=== PATIENT | female | born 1945 | race Caucasian/White ===

== ENCOUNTER 2018-05-04 14:39 | Inpatient (IN) ==
[2018-05-04] MEDS ORDERED: *HR* OxyCODONE Immed Rel 5 MG TABLET PO PRN (14:40)
[2018-05-04] MEDS ORDERED: Loratadine 10 MG TABLET PO PRN (14:44)
--- NOTE | 2018-05-04 15:37 | Internal Med History&Physical ---
Date of Encounter: 05/04/18 Time of Encounter: 15:35 Assessment and Plan (1) Status post total knee replacement, right Current visit: No Status: Acute Secondary to osteoarthritis; patient has metal and polyethylene replacement No reported anemia, patient had EBL 200 mL Operation was 04/30/[address] Valentín Perez PT OT Pain controlled with oxycodone 5 mg every 6 hours when necessary We will also start Tylenol when necessary VTE prophy prescribed ASA 325mg BID per ortho for 10 days last blood work reviewed from the discharge papers 05/02/18 Hgb 12.4 Na 135 K 4 Cl 103 CO 26 BUN 15 Cr 0.71 Rehab orders: "Total Knee replacement Precautions x 6 weeks Apply cold therapy wrap 3-6x/day for 20 minutes at a time. Encourage ambulation throughout the day and incentive spirometer 10x/hour. Elevate affected extremity above heart as tolerated. Brace: Wear knee immobilizer at night x 2 weeks." (2) Arthritis of knee, right Current visit: No Status: Chronic see above (3) HLD (hyperlipidemia) Current visit: No Status: Chronic Patient on simvastatin 20 mg; we will continue Qualifiers: Hyperlipidemia type: unspecified Qualified Code(s): E78.5 - Hyperlipidemia , unspecified (4) Obesity Current visit: No Status: Chronic We will continue to monitor weights Possible nutrition consultation Qualifiers: Obesity type: due to excess calories Obesity classification: adult class 1 (BMI 30 - 34.9) Serious obesity comorbidity presence: without serious comorbidity Body mass index: BMI 33.0-33.9 Qualified Code(s): E66.09 - Other obesity due to excess calories; Z68.33 - Body mass index (BMI) 33.0-33.9, adult Internal Medicine - H&P: HPI Chief complaint: s/p Right knee arthroplasty Admitted From: Hospital to Hospital Transfer Plans for Post Hospital Care: Home History of present illness: Ms. Busch is a 72 year old female w/ past medical history significant for hyperlipidemia and osteoarthritis is status post right robotic-assisted total knee replacement performed in 04/30/2018. Her operative note patient suffered from grade 4 arthritic changes in all 3 compartments and the patient ended with metal and polyethylene replacements after 4 years of kne injections. Denied any use of assistive devices prior to her elective surgery. No reported complications with EBL 200cc. Currently the pt denied any CP/SOB/GI or issues. reporting pain is about 8/10 localized to the knee that affected its ROM. Past Med Surg Social Fam HX - Past Medical History Psychiatric history: no psych history - Past Surgical History Additional surgical history: Right shoulder replacement. Tonsillectomy - Social History Smoking Status: Former smoker Smokeless Tobacco Status: No Alcohol use: occasionally Drug use: none - Family History Father Age at : 46 (cardiovascular related, [place]) Mother Age at : 80 (Jandice related ) Sister Age at : 44 (cardiovascular and DM related) Internal Medicine - H&P: Meds Aspirin Enteric Coated [Aspirin EC] 325 mg PO BID #20 tablet. 04/29/18 [Rx] OxyCODONE Immed Rel [Roxicodone 5 MG] 5 mg PO Q6HR PRN 7 Days #28 tablet [Rx] Loratadine [Allergy Relief] 10 mg PO DAILY 04/30/18 [History] Multivit-Min/FA/Lycopen/Lutein [Adults 50+ Multivitamin Tablet] 1 each PO DAILY 04/30/18 [History] [place]-3S/Dha/Epa/Fish Oil [Fish Oil 1,200 mg Softgel] 2 each PO DAILY 04/30/18 [ History] Simvastatin [Flolipid] 20 mg PO HS 04/30/18 [History] Turmeric/Turmeric Root Extract [Turmeric 450-50 mg Capsule] 450 mg PO DAILY [History] 3 Allergy/AdvReac Type Severity Reaction Status Date / Time Amoxicillin Allergy Hives Verified 05/01/18 14:39 hyaluronic acid Allergy Rash Verified 05/01/18 14:39 [From Euflexxa] sulfamethoxazole Allergy Rash Verified 05/01/18 14:39 [From Septra] trimethoprim [From Septra] Allergy Rash Verified 05/01/18 14:39 All Systems PM: A 10-system review of systems was performed and is negative for pertinent findings except as documented above in the HPI. - Head Head exam: Present: atraumatic, normocephalic - Eye Eye exam: Present: PERRL, conjuntiva pink, sclera anicteric Pupils: Present: PERRL - Neck Neck exam general surgery: Present: supple, trachea midline. Absent: lymphadenopathy - Respiratory Respiratory exam: Present: CTAB. Absent: accessory muscle use, rales, rhonchi, wheezes - Cardiovascular Cardiovascular exam: Present: RRR, +S1, +S2. Absent: diastolic murmur, gallop, rubs, systolic murmur - GI/Abdominal GI/Abdominal exam: Present: normal bowel sounds, soft, no peritoneal signs. Absent: distended, tenderness - Extremities Exam Extremities exam: Present: pedal edema, warm, radial pulses palpable and symmetrical. Absent: calf tenderness, cyanotic Additional comments: Pitting edema on the right lower extremity Affected range of motion on the right knee Right hip 2/5 strength - Incison Incision: Present: clean and dry, erythema, approximated. Absent: draining, red , open - Neurological Exam Neurological exam: Present: CN II-XII intact, oriented X3, no focal deficits. Absent: pronater drift, facial droop, speech deficit - Skin Skin exam: Present: dry, intact - VTE Deep Vein Thrombosis/Pulmonary Embolism Present on Admission: No
[2018-05-04] MEDS ORDERED: Acetaminophen 325 MG TABLET PO PRN (16:10)
[2018-05-04] MEDS: *HR* OxyCODONE Immed Rel 5 MG TABLET PO PRN (22:08)
[2018-05-04] MEDS: Aspirin Enteric Coated 325 MG Tablet PO SCH (22:08)
[2018-05-05] MEDS: *HR* OxyCODONE Immed Rel 5 MG TABLET PO PRN ×4 (04:21→22:22)
[2018-05-05 06:08] LABS: BUN/Creatinine Ratio 23 (6-26); Blood Urea Nitrogen 17 mg/dL (8-23); Calcium 9.2 mg/dL (8.6-10.3); Carbon Dioxide 28 mEq/L (23-29); Chloride 100 mEq/L (98-107); Glucose 117 mg/dL (70-105); Osmolality,Calculated 281 (280-300); Potassium 4.1 mEq/L (3.5-5.1); Sodium 134 mEq/L (136-145); eGFR For African Americans > 60 (> 60); eGFR For Non-African Americans > 60 (> 60)
[2018-05-05 06:09] LABS: Basophils # 0.1 K/mcL (0.0-0.2); Basophils % 0.8 %; Eosinophils # 0.3 K/mcL (0.0-0.6); Eosinophils % 3.3 %; Hematocrit 35.7 % (35.3-44.9); Hemoglobin 12.4 g/dL (11.5-15.4); Immature Granulocytes % 0.2 % (0-4); Lymphocytes # 2.4 K/mcL (0.6-4.6); Mean Corpuscular HGB Conc 34.7 g/dL (31.6-35.5); Mean Corpuscular Hemoglobin 31.2 pg (28.0-33.3); Mean Corpuscular Volume 89.9 fL (83.0-100.0); Mean Platelet Volume 9.9 fL (9.4-12.4); Monocytes # 0.8 K/mcL (0.0-1.3); Monocytes % 8.6 %; Neutrophils # 5.6 K/mcL (1.6-8.9); Platelet Count 272 K/mcL (140-400); Red Blood Count 3.97 M/mcL (3.82-4.97); Red Cell Distribution Width 12.4 % (11.5-14.5); Segmented Neutrophils % 61.1 %
[2018-05-05] MEDS: TURMERIC PO SCH (08:17)
[2018-05-05] MEDS: Aspirin Enteric Coated 325 MG Tablet PO SCH ×2 (08:17→20:30)
[2018-05-05] MEDS: Multivit/Ca/Min/Fe/FA 1 TAB TABLET PO SCH (08:17)
[2018-05-05] MEDS ORDERED: Loratadine 10 MG TABLET PO SCH (09:00)
--- NOTE | 2018-05-05 11:08 | Internal Med Progress Note ---
Date of Encounter: 05/05/18 Time of Encounter: 11:06 - Assessment and plan (1) Status post total knee replacement, right Current Visit: Yes Status: Acute Assessment and plan: Continue PT and OT. Continue oxycodone for pain as needed. Follow up with ortho as scheduled. (2) Arthritis of knee, right Current Visit: Yes Status: Chronic Assessment and plan: s/p right TKR (3) HLD (hyperlipidemia) Current Visit: Yes Status: Chronic Assessment and plan: continue statin Qualifiers: Hyperlipidemia type: unspecified Qualified Code(s): E78.5 - Hyperlipidemia , unspecified (4) Obesity Current Visit: Yes Status: Chronic Assessment and plan: monitor weights Qualifiers: Obesity type: due to excess calories Obesity classification: adult class 1 (BMI 30 - 34.9) Serious obesity comorbidity presence: without serious comorbidity Body mass index: BMI 33.0-33.9 Qualified Code(s): E66.09 - Other obesity due to excess calories; Z68.33 - Body mass index (BMI) 33.0-33.9, adult - Time Spent With Patient 25 - 35 minutes - Subjective Interval history: status post right total knee replacement due to osteoarthritis. Surgery was on April 30. Participating well with therapy. Oxycodone effective for pain. States bowels are moving as normal. Maintaining appetite and hydration. - Constitutional Vitals: Temp Pulse Resp BP Pulse Ox 98.8 F 96 16 130/66 96 05/05/18 07:31 05/05/18 07:31 05/05/18 07:31 05/05/18 07:31 05/05/18 07:31 General appearance: Present: cooperative, A&O X 3, pleasant, no acute distress, answers questions appropriately - Head Head exam: Present: atraumatic, normocephalic - Eye Eye exam: Present: PERRL, conjuntiva pink, sclera anicteric Pupils: Present: PERRL - Neck Neck exam general surgery: Present: supple, trachea midline. Absent: lymphadenopathy - Respiratory Respiratory exam: Present: CTAB. Absent: accessory muscle use, rales, rhonchi, wheezes - Cardiovascular Cardiovascular exam: Present: RRR, +S1, +S2. Absent: diastolic murmur, gallop, rubs, systolic murmur - GI/Abdominal GI/Abdominal exam: Present: normal bowel sounds, soft, no peritoneal signs. Absent: distended, tenderness - Extremities Exam Extremities exam: Present: warm, radial pulses palpable and symmetrical. Absent : calf tenderness, cyanotic, pedal edema - Incison Comments: Right knee surgical incision. Dressing dry and intact. No redness, drainage or sign of infection. Mild amount of edema surrounding - Neurological Exam Neurological exam: Present: CN II-XII intact, oriented X3, no focal deficits. Absent: pronater drift, facial droop, speech deficit - Skin Skin exam: Present: dry, intact Internal Medicine: Result - Labs CBC & Chem 7: 05/05/18 05:35 05/05/18 05:35 Labs: Short CBC 05/05/18 Range/Units 05:35 WBC 9.2 D (4.3-11.1) K/mcL Hgb 12.4 (11.5-15.4) g/dL Hct 35.7 (35.3-44.9) % Plt Count 272 (140-400) K/mcL Neutrophils # 5.6 (1.6-8.9) K/mcL BMP 05/05/18 05:35 Sodium 134 L Potassium 4.1 Chloride 100 Carbon Dioxide 28 BUN 17 Creatinine 0.75 Glucose 117 H Calcium 9.2 - VTE Deep Vein Thrombosis/Pulmonary Embolism Present on Admission: No Consult Discharge Plan - Plan Referrals: Louise Lopez CNP [Primary Care Provider] -
[2018-05-06] MEDS: Multivit/Ca/Min/Fe/FA 1 TAB TABLET PO SCH (09:20)
[2018-05-06] MEDS: Aspirin Enteric Coated 325 MG Tablet PO SCH ×2 (09:20→20:28)
[2018-05-06] MEDS: *HR* OxyCODONE Immed Rel 5 MG TABLET PO PRN ×3 (09:20→20:28)
[2018-05-06] MEDS: TURMERIC PO SCH (09:31)
--- NOTE | 2018-05-06 12:23 | Internal Med Progress Note ---
Date of Encounter: 05/06/18 Time of Encounter: 12:20 - Assessment and plan (1) Status post total knee replacement, right Current Visit: Yes Status: Acute Assessment and plan: Patient noted to have moderate amount of swelling to entire right leg. States slight increase in pain over the past few days after just patient physical therapy to her right knee. Right knee surgical incision appears intact with dressing dry and intact. No ecchymosis or erythema noted. We will continue with current therapy. We will continue with continuous icing to right knee. Patient states that pain is tolerable with current medications. - Time Spent With Patient less than 15 minutes - Subjective Interval history: Patient complaints that her right knee appears somewhat swollen over the past few days after this patient physical therapy. Patient states that her pain is currently tolerable with current pain medications. She states that she also has pain relief from using her continuous icing - Constitutional Vitals: Temp Pulse Resp BP Pulse Ox 98.8 F 85 18 122/62 96 05/06/18 06:00 05/06/18 06:00 05/06/18 06:00 05/06/18 06:00 05/06/18 06:00 General appearance: Present: cooperative, A&O X 3, pleasant, no acute distress, answers questions appropriately - Head Head exam: Present: atraumatic, normocephalic - Eye Eye exam: Present: PERRL, conjuntiva pink, sclera anicteric Pupils: Present: PERRL - Neck Neck exam general surgery: Present: supple, trachea midline. Absent: lymphadenopathy - Respiratory Respiratory exam: Present: CTAB. Absent: accessory muscle use, rales, rhonchi, wheezes - Cardiovascular Cardiovascular exam: Present: RRR, +S1, +S2. Absent: diastolic murmur, gallop, rubs, systolic murmur - GI/Abdominal GI/Abdominal exam: Present: normal bowel sounds, soft, no peritoneal signs. Absent: distended, tenderness - Extremities Exam Extremities exam: Present: warm, radial pulses palpable and symmetrical. Absent : calf tenderness, cyanotic, pedal edema Additional comments: Mild swelling to right leg and thigh. Right knee midline incision appears dry and intact with dressing intact. Continuous icing and process - Neurological Exam Neurological exam: Present: CN II-XII intact, oriented X3, no focal deficits. Absent: pronater drift, facial droop, speech deficit - Skin Skin exam: Present: dry, intact Internal Medicine: Result - Labs CBC & Chem 7: 05/05/18 05:35 05/05/18 05:35 - VTE Deep Vein Thrombosis/Pulmonary Embolism Present on Admission: No Consult Discharge Plan - Plan Referrals: Louise Lopez, CLAIM MANAGER [Primary Care Provider] -
[2018-05-07] MEDS: *HR* OxyCODONE Immed Rel 5 MG TABLET PO PRN ×3 (08:10→21:16)
[2018-05-07] MEDS: Multivit/Ca/Min/Fe/FA 1 TAB TABLET PO SCH (08:10)
[2018-05-07] MEDS: Aspirin Enteric Coated 325 MG Tablet PO SCH ×2 (08:10→21:12)
[2018-05-07] MEDS: TURMERIC PO SCH (08:11)
--- NOTE | 2018-05-07 11:23 | Discharge Summary ---
Date of Encounter: 05/07/18 Time of Encounter: 11:20 - Discharge Diagnosis (1) Status post total knee replacement, right Priority: Primary Status: Acute Comments: improving, drsg dry and intact, no drainage. mod amt of edema to right leg. pain controlled with current meds. f/u with ortho as scheduled. (2) Arthritis of knee, right Priority: Secondary Status: Chronic Comments: recent RTKR. (3) HLD (hyperlipidemia) Priority: Secondary Status: Chronic Comments: continue current meds. f/u with PCP. Qualifiers: Hyperlipidemia type: unspecified Qualified Code(s): E78.5 - Hyperlipidemia , unspecified (4) Obesity Priority: Secondary Status: Chronic Comments: educated healthy eating. Qualifiers: Obesity type: due to excess calories Obesity classification: adult class 1 (BMI 30 - 34.9) Serious obesity comorbidity presence: without serious comorbidity Body mass index: BMI 33.0-33.9 Qualified Code(s): E66.09 - Other obesity due to excess calories; Z68.33 - Body mass index (BMI) 33.0-33.9, adult Hospital course: Ms. Busch is a 72 year old female Discharge discussed with: patient, family, nurse, social work - Time Spent with Patient Total time spent providing and/or coordinating discharge services: Less than 30 minutes - Discharge Medications Home Medications: Aspirin Enteric Coated [Aspirin EC] 325 mg PO BID #20 tablet. 04/29/18 [Rx] Loratadine [Allergy Relief] 10 mg PO DAILY 04/30/18 [History] Multivit-Min/FA/Lycopen/Lutein [Adults 50+ Multivitamin Tablet] 1 each PO DAILY 04/30/18 [History] [place]-3S/Dha/Epa/Fish Oil [Fish Oil 1,200 mg Softgel] 2 each PO DAILY 04/30/18 [ History] Simvastatin [Flolipid] 20 mg PO HS 04/30/18 [History] Turmeric/Turmeric Root Extract [Turmeric 450-50 mg Capsule] 450 mg PO DAILY [History] Acetaminophen [Tylenol] 650 mg PO Q6H PRN tablet 05/07/18 [Rx] OxyCODONE Immed Rel [Roxicodone 5 MG] 5 mg PO Q6HR PRN 7 Days #28 tablet [Rx] Allergies/Adverse Reactions: 3 Allergy/AdvReac Type Severity Reaction Status Date / Time Amoxicillin Allergy Hives Verified 05/01/18 14:39 hyaluronic acid Allergy Rash Verified 05/01/18 14:39 [From Euflexxa] sulfamethoxazole Allergy Rash Verified 05/01/18 14:39 [From Septra] trimethoprim [From Septra] Allergy Rash Verified 05/01/18 14:39 Date of admission: 05/04/18 14:39 Primary care physician: Louise Lopez CNP Consults: 05/04/18 14:36 Consult to Occupational Therapy [CONS] Routine Comment: Evaluate, develop and implement POC Reason for Consult: eval Does patient have active BEDREST order?: No Is patient medically & hemodynamically stable?: Yes Consult to Physical Medicine/Rehab [CONS] Routine Reason for Consult: rtkr Call Completed: Yes Consult to Physical Therapy [CONS] Routine Comment: Evaluate, develop and implement POC Reason for Consult: eval Does patient have active BEDREST order?: No Is patient medically & hemodynamically stable?: Yes Consult to Recreational Therapy [CONS] Routine Comment: Evaluate, develop and implement POC Consult to Special Service Representative [CONS] Routine Reason for SW Consult: d/c planning Discharging clinician: Fercho Bull Anticipated date of discharge: 05/08/18 - Constitutional Vitals: Temp Pulse Resp BP Pulse Ox 98.6 F 82 18 149/64 97 05/07/18 06:08 05/07/18 06:08 05/07/18 06:08 05/07/18 06:08 05/07/18 06:08 General appearance: Present: cooperative, A&O X 3, pleasant, no acute distress, obese, answers questions appropriately - Head Head exam: Present: atraumatic, normocephalic - Eye Eye exam: Present: PERRL, conjuntiva pink, sclera anicteric Pupils: Present: PERRL - Neck Neck exam general surgery: Present: supple, trachea midline. Absent: lymphadenopathy - Respiratory Respiratory exam: Present: CTAB. Absent: accessory muscle use, rales, rhonchi, wheezes - Cardiovascular Cardiovascular exam: Present: RRR, +S1, +S2. Absent: diastolic murmur, gallop, rubs, systolic murmur - GI/Abdominal GI/Abdominal exam: Present: normal bowel sounds, soft, no peritoneal signs. Absent: distended, tenderness - Extremities Exam Extremities exam: Present: warm, radial pulses palpable and symmetrical. Absent : calf tenderness, cyanotic, pedal edema - Incison Comments: Right knee surgical incision dressing dry and intact. No drainage, no ecchymosis. Moderate amount of edema to right extremity - Neurological Exam Neurological exam: Present: CN II-XII intact, oriented X3, no focal deficits. Absent: pronater drift, facial droop, speech deficit - Skin Skin exam: Present: dry, intact - Patient Status Disposition: Home Health Service Condition: Good Functional capacity at discharge: uses cane/walker Overall status at discharge: patient is progressing back to baseline - Discharge Instructions Follow Up With: Louise Lopez, [employer]DER [Primary Care Provider] - - Diet and Activity Activity: as per physical therapy Diet: advance to your usual diet - VTE Deep Vein Thrombosis/Pulmonary Embolism Present on Admission: No
--- NOTE | 2018-05-07 13:33 | Physician Discharge Referral ---
Home Health/Hosp Referral Info Transfer to: Home Health Provider in Charge Post Discharge: PCP - Diagnosis (1) Status post total knee replacement, right Priority: Primary Status: Acute (2) Arthritis of knee, right Priority: Secondary Status: Chronic (3) HLD (hyperlipidemia) Priority: Secondary Status: Chronic (4) Obesity Priority: Secondary Status: Chronic - Respiratory Orders Smoking Cessation: Smoking cessation has been advised. For more information, call the [place] Tobacco Quit Line at 0-216-MHGV-NOW. - Diet/Nutrition Diet/Nutrition Orders: Regular - Activity Activity Orders: Walker - Services Needed Following services are medically necessary services: Nursing, Physical Therapy - Transfer Medications Prescriptions: OxyCODONE Immed Rel [Roxicodone 5 MG] 5 mg PO Q6HR PRN 7 Days #28 tablet PRN Reason: Severe Pain Home Medications: Aspirin Enteric Coated [Aspirin EC] 325 mg PO BID #20 tablet. 04/29/18 [Rx] Loratadine [Allergy Relief] 10 mg PO DAILY 04/30/18 [History] Multivit-Min/FA/Lycopen/Lutein [Adults 50+ Multivitamin Tablet] 1 each PO DAILY 04/30/18 [History] [place]-3S/Dha/Epa/Fish Oil [Fish Oil 1,200 mg Softgel] 2 each PO DAILY 04/30/18 [ History] Simvastatin [Flolipid] 20 mg PO HS 04/30/18 [History] Turmeric/Turmeric Root Extract [Turmeric 450-50 mg Capsule] 450 mg PO DAILY [History] Acetaminophen [Tylenol] 650 mg PO Q6H PRN tablet 05/07/18 [Rx] OxyCODONE Immed Rel [Roxicodone 5 MG] 5 mg PO Q6HR PRN 7 Days #28 tablet [Rx] Allergies/Adverse Reactions: 3 Allergy/AdvReac Type Severity Reaction Status Date / Time Amoxicillin Allergy Hives Verified 05/01/18 14:39 hyaluronic acid Allergy Rash Verified 05/01/18 14:39 [From Euflexxa] sulfamethoxazole Allergy Rash Verified 05/01/18 14:39 [From Septra] trimethoprim [From Septra] Allergy Rash Verified 05/01/18 14:39 Certification: Further, I certify that my clinical findings support that this patient is homebound (i.e. absences from home require considerable and taxing effort and are for medical reasons or [employer] services or infrequently or short duration when for other reasons) because: Homebound Reason: Patient requires assistance of a person or device to safely leave home, Post-surgery restriction and or conditions limit ability to leave home Attestation: My signature below is to certify that this patient is under my care and that I, or nurse practitioner, or a physician's paperhanger assistant working with me, has a face-to -face encounter with this patient.
[2018-05-08] MEDS: *HR* OxyCODONE Immed Rel 5 MG TABLET PO PRN ×2 (05:35→09:19)
[2018-05-08 07:32] VITALS: BP 123/57
[2018-05-08] MEDS: Multivit/Ca/Min/Fe/FA 1 TAB TABLET PO SCH (07:47)
[2018-05-08] MEDS: TURMERIC PO SCH (07:47)
[2018-05-08] MEDS: Aspirin Enteric Coated 325 MG Tablet PO SCH (07:47)
--- NOTE | 2018-05-08 11:33 | Internal Med Progress Note ---
Date of Encounter: 05/08/18 Time of Encounter: 11:31 - Assessment and plan (1) Status post total knee replacement, right Status: Acute Assessment and plan: Continue home PT. Continue oxycodone for pain as needed. Follow up with ortho as scheduled. (2) Arthritis of knee, right Status: Chronic Assessment and plan: s/p right TKR (3) HLD (hyperlipidemia) Status: Chronic Assessment and plan: continue statin. f/u with PCP. Qualifiers: Hyperlipidemia type: unspecified Qualified Code(s): E78.5 - Hyperlipidemia , unspecified (4) Obesity Status: Chronic Assessment and plan: monitor weights Qualifiers: Obesity type: due to excess calories Obesity classification: adult class 1 (BMI 30 - 34.9) Serious obesity comorbidity presence: without serious comorbidity Body mass index: BMI 33.0-33.9 Qualified Code(s): E66.09 - Other obesity due to excess calories; Z68.33 - Body mass index (BMI) 33.0-33.9, adult - Time Spent With Patient less than 15 minutes - Subjective Interval history: status post right total knee replacement due to osteoarthritis. Surgery was on April 30. discharging to home today with home health PT and nursing. going to follow up appt today with ortho. Oxycodone effective for pain. States bowels are moving as normal. Maintaining appetite and hydration. - Constitutional Vitals: Temp Pulse Resp BP Pulse Ox 97.9 F 88 16 123/57 95 05/08/18 06:00 05/08/18 06:00 05/08/18 06:00 05/08/18 06:00 05/08/18 06:00 General appearance: Present: cooperative, A&O X 3, pleasant, no acute distress, obese, answers questions appropriately - Head Head exam: Present: atraumatic, normocephalic - Eye Eye exam: Present: PERRL, conjuntiva pink, sclera anicteric Pupils: Present: PERRL - Neck Neck exam general surgery: Present: supple, trachea midline. Absent: lymphadenopathy - Respiratory Respiratory exam: Present: CTAB. Absent: accessory muscle use, rales, rhonchi, wheezes - Cardiovascular Cardiovascular exam: Present: RRR, +S1, +S2. Absent: diastolic murmur, gallop, rubs, systolic murmur - GI/Abdominal GI/Abdominal exam: Present: normal bowel sounds, soft, no peritoneal signs. Absent: distended, tenderness - Extremities Exam Extremities exam: Present: warm, radial pulses palpable and symmetrical. Absent : calf tenderness, cyanotic, pedal edema - Incison Comments: right knee incision drsg dry and intact. no drainage, mod amt of edema. - Neurological Exam Neurological exam: Present: CN II-XII intact, oriented X3, no focal deficits. Absent: pronater drift, facial droop, speech deficit - Skin Skin exam: Present: dry, intact Internal Medicine: Result - Labs CBC & Chem 7: 05/05/18 05:35 05/05/18 05:35 - VTE Deep Vein Thrombosis/Pulmonary Embolism Present on Admission: No Consult Discharge Plan - Plan Additional Instructions: Discharge Instructions: Total Knee Replacement Please call [facility] ([phone]), your Primary Care Physician, or report to the Emergency Room if you have any of the following symptoms: Nausea, vomiting, fever greater that 101.5, swelling, chest pain, shortness of breath, increased pain/redness/drainage/odor for your incision site, numbness/ tingling, or any other concerning symptoms. ACTIVITY:Weight-bearing as tolerated. You may progress off support (crutches or walker) as tolerated. Incentive Spirometer 10 times an hour. MEDICATIONS: Upon discharge resume your home medications. Take all the medications as prescribed. Take a stool softener if taking narcotic pain medications. Stool softeners are only effective if you drink enough fluids. Drink 6-8 glass of water or fluids a day, unless this is not allowed for another health problem. Despite using stool softeners, if you haven't had a bowel movement in 3 days, please switch to a gentle laxative. Gentle laxatives are sold over the counter. You should have a bowel movement within 24 hours, if not call the office. You will be discharged from the hospital with a prescription for pain medication. You are encouraged to decrease the use of narcotic pain medication as tolerated. Should you require a refill, please call the office. [facility] prescribes narcotic pain medication for only 4-6 weeks after surgery. If you require pain medication beyond this time period, you may be referred to your Primary Care Physician or to the Pain Clinic for further evaluation. Plan ahead for refills on pain medication as many narcotics either need to be picked up at the office or mailed. It is best to call 48-72 hours in advance of needing a prescription refill so you don't run out of medication. To help control the post-operative pain, you may take NSAIDs (Aleve,Advil, Motrin, Ibuprofen, Naprosyn) or Tylenol as prescribed on the bottle in addition to the pain medication. ANTICOAGULATION (blood thinners): Continue your Aspirin, Lovenox or Coumadin as prescribed to help prevent a blood clot in the leg or in the lungs. As long as your incision remains dry and you tolerate the NSAIDs (Aleve, Advil, Motrin, ibuprofen, naprosyn), it is OK to use the NSAIDS while you are taking your anticoagulation medication. Should your incision start to drain, stop the NSAID and contact our office. Common symptoms of blood clot in the legs include: localized pain, swelling, calf tenderness, redness or discoloration of the skin. Blood clot in the lung symptoms include: shortness of breath, rapid pulse, sweating, and chest pain that worsens with deep breathing, coughing up blood, lightheadedness, feelings of anxiety. If you experience any of these symptoms notify your physician immediately, go to the emergency room, or if having trouble breathing, call 911. WOUND CARE: Leave the dressing on for 7 to 10days. You may change the dressing if it becomes saturated greater than 50%. Do not get the dressing wet at anytime. Wash your hands with antibacterial soap, rinse and dry prior to any wound care. If you have london the visiting nurse or rehab facility can remove the stapes 10-14 days after surgery and place steri-strips across the wound. Leave the steri-strips in place until they fall off on their won. You may let water from the shower run on top of the steri-strips. If you do not have a visiting nurse or rehab facility, you will need to return to the office at 10-14 days for the london to be removed. If you have itching or redness around the dressing call the office. FOLLOW-UP: Please follow up with your surgeon in the orthopedic clinic in 4 weeks from the day of surgery. If you have london that need to be removed, you will need to come back to the office in 10-14 days from the day of surgery. Referrals: Valentín Perez MD [Partnered Physician] - 05/08/18 10:45 am Louise Lopez CNP [Primary Care Provider] - 05/12/18 12:00 pm () Prescriptions: OxyCODONE Immed Rel [Roxicodone 5 MG] 5 mg PO Q6HR PRN 7 Days #28 tablet PRN Reason: Severe Pain
== END 2018-05-08 10:14 | disposition home health service (06) | DRG 561 ==
LOC: INPGRE 14:39